=== PATIENT | male | born 1980 | race Caucasian/White ===

== ENCOUNTER 2019-09-28 14:27 | Emergency (ER) | payer BC ==
[~2019-09-28] VITALS: Ht 175.2 cm; Wt 86.2 kg
[2019-09-28 15:21] LABS: BASO % 0.5 % (0.0-1.0); EOS # 0.3 10*3/uL (0.0-0.4); EOS % 5.1 % (1.0-4.0); HEMATOCRIT 43.3 % (42.0-52.0); HEMOGLOBIN 15.4 g/dl (14.0-18.0); LYMPH # 2.3 10*3/uL (1.3-4.4); LYMPH % 34.8 % (27.0-41.0); MEAN CELL VOLUME 95.4 fl (80.0-94.0); MEAN CORPUSCULAR HGB 33.9 pg (27.0-31.0); MEAN CORPUSCULAR HGB CONC 35.6 g/dl (33.0-37.0); MEAN PLATELET VOLUME 10.1 fl (9.6-12.3); MONO # 0.6 10*3/uL (0.1-1.0); MONO % 9.4 % (3.0-9.0); NEUT # 3.2 10*3/uL (2.3-7.9); NEUT % 49.9 % (47.0-73.0); PLATELET COUNT AUTOMATED 238 10*3/uL (130-400); RED BLOOD COUNT 4.54 10*6/uL (4.50-5.90); RED CELL DISTRI WIDTH 13.1 % (0-14.5); WHITE BLOOD COUNT 6.5 10*3/uL (4.8-10.8)
[2019-09-28 15:41] LABS: ALBUMIN 3.6 gm/dl (3.1-4.5); ALKALINE PHOSPHATASE 111 U/L (45-117); CHLORIDE 106 mmol/L (98-107); CREATININE 1.08 mg/dL (0.70-1.30); POTASSIUM 4.1 mmol/L (3.5-5.1); SODIUM 139 mmol/L (136-145)
[2019-09-28 15:49] LABS: TROPONIN I < 0.015 ng/ml (<0.045)
[2019-09-28 15:57] LABS: INTERNATIONAL NORM RATIO 0.9 (2.0-3.5)
[2019-09-28 16:40] LABS: BUN 14 mg/dl (7-24)
[2019-09-28 16:41] LABS: SGOT/AST 39 IU/L (3-35); SGPT/ALT 54 U/L (12-78); TOTAL PROTEIN 7.2 gm/dL (6.4-8.2)
[2019-09-28] MEDS ORDERED: NAPROSYN500 MG PO (16:57)
[2019-09-28] MEDS ORDERED: METHOCARBAMOL500 M1 PO (16:57)
== END 2019-09-28 17:02 | disposition home or self-care (01) ==
LOC: ED 14:27
PROVIDERS: Nurse Practitioner Family
DX: S29.011A Strain of muscle and tendon of front wall of thorax, initial encounter (principal); X50.1XXA Overexertion from prolonged static or awkward postures, initial encounter; Y93.B9 Activity, other involving muscle strengthening exercises; Y92.39 Other specified sports and athletic area as the place of occurrence of the external cause; Y99.8 Other external cause status

== ENCOUNTER 2020-01-06 15:18 | Inpatient (IN) | payer BC ==
[~2020-01-06] VITALS: Ht 175.3 cm; Wt 81.2 kg
[~2020-01-06 15:18] MED LIST: METHOCARBAMOL500 M1 PO; NAPROSYN500 MG PO
[2020-01-06 15:23] VITALS: BP 134/82
[2020-01-06 16:15] LABS: BILIRUBIN NEGATIVE (NEGATIVE); BLOOD TRACE-INTACT (NEGATIVE); CLARITY CLEAR (CLEAR); COLOR STRAW (YELLOW); GLUCOSE 3+ (NEGATIVE); KETONE 3+ (NEGATIVE); LEUKO ESTERASE NEGATIVE (NEGATIVE); NITRITE NEGATIVE (NEGATIVE); SPECIFIC GRAVITY 1.015 (1.005-1.030); UROBILINOGEN 0.2 E.U./dl (0.2-1.0)
[2020-01-06 16:16] LABS: BACTERIA TRACE; EPITHELIAL CELLS 0-2
[2020-01-06 16:30] VITALS: BP 137/77
[2020-01-06 17:20] LABS: ALBUMIN 3.6 gm/dl (3.1-4.5); ALKALINE PHOSPHATASE 172 U/L (45-117); CHLORIDE 92 mmol/L (98-107); CREATININE 1.46 mg/dL (0.70-1.30); LIPASE 168 U/L (73-393); POTASSIUM 4.8 mmol/L (3.5-5.1); SODIUM 126 mmol/L (136-145)
[2020-01-06 17:21] LABS: BASO % 0.5 % (0.0-1.0); EOS # 0.3 10*3/uL (0.0-0.4); EOS % 3.7 % (1.0-4.0); HEMATOCRIT 40.4 % (42.0-52.0); HEMOGLOBIN 14.5 g/dl (14.0-18.0); LYMPH % 25.1 % (27.0-41.0); MEAN CELL VOLUME 90.2 fl (80.0-94.0); MEAN CORPUSCULAR HGB 32.4 pg (27.0-31.0); MEAN CORPUSCULAR HGB CONC 35.9 g/dl (33.0-37.0); MEAN PLATELET VOLUME 11.5 fl (9.6-12.3); MONO # 0.6 10*3/uL (0.1-1.0); MONO % 7.1 % (3.0-9.0); NEUT % 63.2 % (47.0-73.0); NUCLEATED RED BLOOD CELL 0.3 % (0.0-0.0); PLATELET COUNT AUTOMATED 211 10*3/uL (130-400); RED BLOOD COUNT 4.48 10*6/uL (4.50-5.90); RED CELL DISTRI WIDTH 11.9 % (0-14.5); WHITE BLOOD COUNT 7.9 10*3/uL (4.8-10.8)
[2020-01-06 17:29] LABS: BUN 21 mg/dl (7-24); SGOT/AST 15 IU/L (3-35); SGPT/ALT 43 U/L (12-78); TOTAL PROTEIN 7.7 gm/dL (6.4-8.2)
[2020-01-06 17:30] VITALS: BP 139/76
[2020-01-06 18:12] LABS: ARTERIAL BLOOD GAS PH 7.32 (7.35-7.45)
[2020-01-06 18:16] LABS: ABG BASE EXCESS -7.8 mmol/L (-2.0-2.0)
[2020-01-06 18:30] VITALS: BP 134/77
[2020-01-06 19:51] VITALS: BP 120/73
--- NOTE | 2020-01-06 19:51 | NUR ---
A 39, admitted to ICCU, under the services of LORETTA Bradford DO with a diagnosis of DKA. Chief complaint is noticed blood sugars at home in 600's after eating steak dinner. Patient arrived via stretcher from ER. Monitor applied. Initial assessment completed. Vital signs taken and recorded. LORETTA BRADFODR DO notified of admission to the unit. Orders received. See assessment for past medical history, medications and allergies. Patient and/or family oriented to unit. [facility]U visitation policy reviewed. Clothing/patient valuable form completed. RAMONA RODRIGUEZ
[2020-01-06 20:00] VITALS: BP 120/73
[2020-01-06 20:11] LABS: CHLORIDE 98 mmol/L (98-107); CREATININE 1.26 mg/dL (0.70-1.30); SODIUM 129 mmol/L (136-145)
[2020-01-06 20:33] LABS: BUN 22 mg/dl (7-24)
--- NOTE | 2020-01-06 20:35 | NUR ---
PT SODIUM 129. DR PALOMINO NOTIFIED AND NEW ORDER TO FINISH FLUID BOLUS UP NOW THEN NS @ 200CC/HR.
[2020-01-06 23:33] LABS: BUN 17 mg/dl (7-24); CHLORIDE 107 mmol/L (98-107); CREATININE 0.97 mg/dL (0.70-1.30); POTASSIUM 3.4 mmol/L (3.5-5.1); SODIUM 136 mmol/L (136-145)
[2020-01-07] VITALS: BP 108/72
[2020-01-07 01:48] LABS: BUN 15 mg/dl (7-24); CHLORIDE 108 mmol/L (98-107); CREATININE 0.83 mg/dL (0.70-1.30); POTASSIUM 3.6 mmol/L (3.5-5.1); SODIUM 139 mmol/L (136-145)
[2020-01-07 04:00] VITALS: BP 109/70
[2020-01-07 04:51] LABS: BUN 14 mg/dl (7-24); CREATININE 0.74 mg/dL (0.70-1.30)
[2020-01-07 04:55] LABS: CHLORIDE 109 mmol/L (98-107); POTASSIUM 3.9 mmol/L (3.5-5.1); SODIUM 138 mmol/L (136-145)
[2020-01-07 05:06] LABS: PHOSPHOROUS 2.6 mg/dL (2.5-4.9)
[2020-01-07 05:57] LABS: BASO % 0.6 % (0.0-1.0); EOS # 0.5 10*3/uL (0.0-0.4); EOS % 7.4 % (1.0-4.0); HEMATOCRIT 37.5 % (42.0-52.0); HEMOGLOBIN 12.9 g/dl (14.0-18.0); LYMPH # 3.3 10*3/uL (1.3-4.4); LYMPH % 45.6 % (27.0-41.0); MEAN CELL VOLUME 91.9 fl (80.0-94.0); MEAN CORPUSCULAR HGB 31.6 pg (27.0-31.0); MEAN CORPUSCULAR HGB CONC 34.4 g/dl (33.0-37.0); MEAN PLATELET VOLUME 11.2 fl (9.6-12.3); MONO # 0.6 10*3/uL (0.1-1.0); MONO % 7.9 % (3.0-9.0); NEUT # 2.7 10*3/uL (2.3-7.9); NEUT % 38.2 % (47.0-73.0); PLATELET COUNT AUTOMATED 196 10*3/uL (130-400); RED BLOOD COUNT 4.08 10*6/uL (4.50-5.90); RED CELL DISTRI WIDTH 12.1 % (0-14.5); WHITE BLOOD COUNT 7.1 10*3/uL (4.8-10.8)
[2020-01-07 08:00] VITALS: BP 99/69
[2020-01-07 08:01] LABS: BUN 12 mg/dl (7-24); CHLORIDE 111 mmol/L (98-107); POTASSIUM 3.7 mmol/L (3.5-5.1); SODIUM 137 mmol/L (136-145)
--- NOTE | 2020-01-07 09:45 | NUR ---
IVF'S AND INSULIN GTT DC'D
--- NOTE | 2020-01-07 10:10 | NUR ---
TELEVISION AGENT KHRIS IN TO EDUCATE PT ON ADA DIET.
--- NOTE | 2020-01-07 10:37 | NUR ---
Nutritional Support Services Note: Instructed pt on diabetic diet. Diet copy given to pt. Pt is very receptive to teaching. Has a good understanding of the diet. Understands the need for compliance. Usually eats three meals daily and a night snack and normally uses sugar substitute. Encouraged montioring his BS and exercise on a daily basis. Ht.5'9 Wt.179#. Encouraged follow up if needed. All questions were answered. Michelle Sanches Rdn Ld
--- NOTE | 2020-01-07 10:53 | NUR ---
PHARMACY DEPT HERE FOR DIABETIC EDUCATION WITH PT.
[2020-01-07 12:00] VITALS: BP 107/71
[2020-01-07] MEDS ORDERED: Humalog SQ (14:05)
[2020-01-07] MEDS ORDERED: LANTUS SOL100 UNIT/1 SQ (14:05)
[2020-01-07] MEDS ORDERED: GLUCTESTSTRIP MC (14:11)
[2020-01-07] MEDS ORDERED: ONETOUCH LANCE1 EACH MC (14:11)
[2020-01-07] MEDS ORDERED: TEST STRIPS1 EACH MC (14:11)
--- NOTE | 2020-01-07 14:33 | NUR ---
[employer]ar [employer] Teacher in to talk to patient. Patient states lives at HOME with . There are FEW steps in the home. Physician: DAMEON SMILEY [facility]acy: [facility] Home health services: NONE Patient's level of ADLs: INDEPENDENT Patient has working utilities: YES DME: NONE Follow-up physician's appointment after d/c: WILL BE MADE BY HOSPITALIST NURSE DIRECTOR ON DISCHARGE Does patient want to access PORTAL?: NO Discharge plan PT LIVES AT HOME WITH AND IS INDEPENDENT IN HIS CARE. DENIES HE KAYLA HAVE NEEDS ON DISCHARGE. PLAN IS TO RETURN HOME WITH WHEN MEDICALLY STABLE. WILL CONTINUE TO FOLLOW. STATES HIS TRUCK IS HERE AND HE WILL DRIVE SELF HOME.. PEDRO KHALIL
[2020-01-07] MEDS ORDERED: ZESTRIL2.5 MG PO (15:33)
--- NOTE | 2020-01-07 17:00 | NUR ---
Discharge instructions reviewed with patient/family. Patient receptive and verbalizes understanding. Follow-up care arranged. Written instructions given to patient/family. FARZAD ROSS
--- NOTE | 2020-01-07 17:20 | NUR ---
PT DISCHARGED AT THIS TIME TO HOME.
== END 2020-01-07 18:02 | disposition home or self-care (01) | DRG 637 ==
LOC: ED 15:18 → ICCU 18:40 → EDHOLD 18:40 → ICCU 19:02
PROVIDERS: Physician Assistant; Student in an Organized Health Care Education/Training Program; ADMIT Family Medicine
DX: E13.10 Other specified diabetes mellitus with ketoacidosis without coma (principal); N17.0 Acute kidney failure with tubular necrosis; E87.1 Hypo-osmolality and hyponatremia; E44.1 Mild protein-calorie malnutrition; E13.8 Other specified diabetes mellitus with unspecified complications; F17.210 Nicotine dependence, cigarettes, uncomplicated; E66.3 Overweight; E87.8 Other disorders of electrolyte and fluid balance, not elsewhere classified; E80.6 Other disorders of bilirubin metabolism; R74.8 Abnormal levels of other serum enzymes; Z79.4 Long term (current) use of insulin; Z79.899 Other long term (current) drug therapy; Z98.52 Vasectomy status; Z71.6 Tobacco abuse counseling; Z68.25 Body mass index [BMI] 25.0-25.9, adult

== ENCOUNTER 2021-09-03 10:05 | Emergency (ER) | payer BC ==
[~2021-09-03] VITALS: Ht 175.2 cm; Wt 80.7 kg
[~2021-09-03 10:05] MED LIST changes: +GLUCTESTSTRIP MC; +Humalog SQ; +LANTUS SOL100 UNIT/1 SQ; +ONETOUCH LANCE1 EACH MC; +TEST STRIPS1 EACH MC; +ZESTRIL2.5 MG PO
[2021-09-03 10:28] LABS: BASO % 0.4 % (0.0-1.0); EOS # 0.4 10*3/uL (0.0-0.4); EOS % 4.8 % (1.0-4.0); HEMATOCRIT 45.6 % (42.0-52.0); LYMPH # 2.4 10*3/uL (1.3-4.4); LYMPH % 33.3 % (27.0-41.0); MEAN CELL VOLUME 96.4 fl (80.0-94.0); MEAN CORPUSCULAR HGB 32.3 pg (27.0-31.0); MEAN CORPUSCULAR HGB CONC 33.6 g/dl (33.0-37.0); MEAN PLATELET VOLUME 9.8 fl (9.6-12.3); MONO # 0.7 10*3/uL (0.1-1.0); MONO % 9.4 % (3.0-9.0); NEUT # 3.7 10*3/uL (2.3-7.9); NEUT % 51.8 % (47.0-73.0); PLATELET COUNT AUTOMATED 223 10*3/uL (130-400); RED BLOOD COUNT 4.73 10*6/uL (4.50-5.90); RED CELL DISTRI WIDTH 13.2 % (0-14.5); WHITE BLOOD COUNT 7.2 10*3/uL (4.8-10.8)
[2021-09-03 10:40] LABS: ACT PARTIAL THROMBO TIME 26.5 SECONDS (20.0-32.1)
[2021-09-03 10:51] LABS: ALBUMIN 3.4 gm/dl (3.1-4.5); ALKALINE PHOSPHATASE 71 U/L (45-117); BUN 17 mg/dl (7-24); CHLORIDE 109 mmol/L (98-107); CREATININE 0.85 mg/dL (0.70-1.30); POTASSIUM 4.2 mmol/L (3.5-5.1); SGOT/AST 14 IU/L (3-35); SGPT/ALT 24 U/L (12-78); SODIUM 139 mmol/L (136-145); TOTAL PROTEIN 6.9 gm/dL (6.4-8.2)
[2021-09-03 10:52] LABS: TROPONIN I < 0.015 ng/ml (<0.045)
== END 2021-09-03 11:50 | disposition home or self-care (01) ==
LOC: ED 10:05
PROVIDERS: Student in an Organized Health Care Education/Training Program
DX: S29.012A Strain of muscle and tendon of back wall of thorax, initial encounter (principal); S29.011A Strain of muscle and tendon of front wall of thorax, initial encounter; F17.200 Nicotine dependence, unspecified, uncomplicated; X50.9XXA Other and unspecified overexertion or strenuous movements or postures, initial encounter; Y93.89 Activity, other specified; Y92.89 Other specified places as the place of occurrence of the external cause; Y99.8 Other external cause status

== ENCOUNTER 2025-06-27 18:25 | Emergency (ER) | payer BC ==
[2025-06-27] MEDS ORDERED: Hydrocortisone Sodium Succin 100 MG/2 ML VIAL IV ONE (18:40)
[2025-06-27] MEDS ORDERED: DEXTROSE 10 % IN WATER 250 ML IV ONE ×2 (18:48→19:30)
[2025-06-27 19:03] LABS: BASO # 0.0 10*3/uL (0.0-0.1); BASO % 0.4 % (0.0-1.0); EOS # 0.4 10*3/uL (0.0-0.4); EOS % 5.0 % (1.0-4.0); MEAN CELL VOLUME 97.7 fl (80.0-94.0); MEAN CORPUSCULAR HGB 32.6 pg (27.0-31.0); MEAN PLATELET VOLUME 9.1 fl (9.6-12.3); MONO # 0.5 10*3/uL (0.1-1.0); MONO % 7.0 % (3.0-9.0); NEUT # 3.1 10*3/uL (2.3-7.9); NEUT % 41.5 % (47.0-73.0); NUCLEATED RED BLOOD CELL 0.0 % (0.0-0.0); NUCLEATED RED BLOOD CELL 0.0 10*3/uL (0.0-0.0); PLATELET COUNT AUTOMATED 234 10*3/uL (130-400); RED CELL DISTRI WIDTH 13.9 % (0-14.5)
[2025-06-27 19:28] LABS: BUN 13 mg/dl (9-23); SGPT/ALT 11 U/L (5-49)
[2025-06-27] MEDS ORDERED: DEXTROSE 50% 25 GM/50 ML SYR IV ONE ×2 (19:30→19:48)
== END 2025-06-27 22:04 | disposition home or self-care (01) ==
LOC: ED 18:25
PROVIDERS: Emergency Medicine
DX: E10.649 Type 1 diabetes mellitus with hypoglycemia without coma (principal); F17.200 Nicotine dependence, unspecified, uncomplicated